=== PATIENT | male | born 1965 | race American Indian/Alaskan Native ===

== ENCOUNTER 2020-12-09 21:07 | Inpatient (IN) | payer SELFPAY ==
[2020-12-09] MEDS ORDERED: SODIUM CHLORIDE 0.9% 1000 ML 1,000 ML IV ONE (21:30)
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
[2020-12-09 21:52] LABS: Basophils # (Auto) 0.1 K/mm3 (0.0-0.1); Basophils % (Auto) 1.2 % (0.0-1.8); Eosinophils # (Auto) 0.1 K/mm3 (0.0-0.4); Eosinophils % (Auto) 2.9 % (0.0-4.3); Hematocrit 40.6 % (35.5-45.6); Hemoglobin 13.7 gm/dl (11.8-15.2); Lymphocytes # (Auto) 1.8 K/mm3 (1.2-5.4); Lymphocytes % (Auto) 36.9 % (13.4-35.0); Mean Corpuscular HGB Conc 34 % (32-34); Mean Corpuscular Volume 81 fl (84-94); Monocytes # (Auto) 0.4 K/mm3 (0.0-0.8); Monocytes % (Auto) 7.5 % (0.0-7.3); Platelet Count 237 K/mm3 (140-440); Red Blood Count 4.99 M/mm3 (3.65-5.03); Red Cell Distribution Width 14.1 % (13.2-15.2)
[2020-12-09 22:15] LABS: Alanine Aminotransferase 12 units/L (7-56); Albumin 4.2 g/dL (3.9-5); BUN/Creatinine Ratio 14; Blood Urea Nitrogen 15 mg/dL (9-20); Calcium 9.2 mg/dL (8.4-10.2); Hemolysis Index 16
--- NOTE | 2020-12-09 22:25 | XRay Report ---
CHEST 1 VIEW 12/09/2020 10:03 PM INDICATION / CLINICAL INFORMATION: Altered Mental Status. COMPARISON: One view of the chest dated 01/26/2014. FINDINGS: SUPPORT DEVICES: None. HEART / MEDIASTINUM: No significant abnormality. LUNGS / PLEURA: Clear lungs. No significant pleural effusion. No pneumothorax. ADDITIONAL FINDINGS: No significant additional findings. IMPRESSION: 1. No acute abnormality of the chest. Signer Name: Jeff Ortiz MD Signed: 12/09/2020 10:20 PM Workstation Name: [id number]
--- NOTE | 2020-12-09 22:55 | Cat Scan Report ---
CT head/brain wo con INDICATION: Altered Mental Status. TECHNIQUE: All CT scans at this location are performed using the following dose modulation technique: Automated exposure control. CONTRAST: None. COMPARISON: None available. FINDINGS: The ventricular system is appropriate in size and configuration without midline shift. Nega tive for mass, stroke or hemorrhage. Physiologic calcification is seen at the basal ganglia. Image bones and paranasal sinuses are unremarkable. IMPRESSION: Negative CT brain without contrast. Signer Name: Shad Saunders MD Signed: 12/09/2020 10:50 PM Workstation Name: [id number]
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
[2020-12-09] MEDS ORDERED: ASPIRIN 81 MG TAB CHEW PO ONE (23:01)
[2020-12-09] MEDS ORDERED: IBUPROFEN 800 MG TAB PO ONE (23:01)
[2020-12-10] MEDS ORDERED: MAGNESIUM HYDROXIDE (MOM) ORAL LIQD UDC PO PRN ×2 (00:45)
[2020-12-10] MEDS ORDERED: ONDANSETRON 4 MG/2 ML INJ IV PRN ×2 (00:45)
[2020-12-10] MEDS ORDERED: PROMETHAZINE 25 MG RECT SUPP PR PRN (00:45)
[2020-12-10] MEDS ORDERED: METOCLOPRAMIDE 10 MG TAB PO PRN (00:45)
[2020-12-10] MEDS ORDERED: MORPHINE 2 MG/1 ML INJ IV PRN (00:45)
[2020-12-10] MEDS ORDERED: DEXTROSE 50% IN WATER (25GM) 50 ML SYRINGE IV PRN (00:45)
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
[2020-12-10 01:39] LABS: Amphetamine Screen,Urine PRESUMPTIVE NEGATIVE; Benzodiazepines Screen,Urine PRESUMPTIVE NEGATIVE; Cannabinoid Screen,Urine PRESUMPTIVE NEGATIVE; Cocaine Screen,Urine PRESUMPTIVE NEGATIVE; Methadone Screen,Urine PRESUMPTIVE NEGATIVE; Opiate Screen,Urine PRESUMPTIVE NEGATIVE
[2020-12-10 01:50] LABS: Bilirubin,Urine NEG (Negative); Blood,Urine NEG (Negative); Color,Urine Colorless (Yellow); Protein,Urine <15 mg/dL mg/dL (Negative); RBC,Urine < 1.0 /HPF (0.0-6.0); Urobilinogen,Urine < 2.0 mg/dL (<2.0); WBC,Urine < 1.0 /HPF (0.0-6.0)
[2020-12-10] MEDS: INSULIN LISPRO 100 UNIT/ML SUB-Q SCH ×4 (08:02→21:35)
[2020-12-10] MEDS: ASPIRIN EC 325 MG TAB PO SCH (09:01)
[2020-12-10] MEDS: ACETAMINOPHEN 325 MG TAB PO PRN ×2 (09:01→21:34)
[2020-12-10] MEDS ORDERED: oxyCODONE 5 MG TAB PO PRN (10:00)
--- NOTE | 2020-12-10 10:42 | Vascular Lab Report ---
BILATERAL CAROTID DUPLEX DOPPLER ULTRASOUND HISTORY: stroke COMPARISON: None. TECHNIQUE: Bryant scale, color and spectral Doppler imaging was performed of the extracranial neck carolina alonso. All stenosis measurements were obtained in comparison with the distal internal carotid artery per the SRU consensus criteria. FINDINGS: RIGHT NECK ARTERIES: CCA: No significant abnormality. ICA: Minimal atherosclerotic plaque in the proximal ICA. ECA: No significant abnormality. Vertebral Artery: No significant abnormality. Antegrade flow. LEFT NECK ARTERIES: CCA: No significant abnormality. ICA: Minimal atherosclerotic plaque in the proximal ICA. ECA: No significant abnormality. Vertebral Artery: No significant abnormality. Antegrade flow. CCA PSV: Right: 100.9 Left: 91.9 cm/sec ICA PSV: Right: 82.9 Left: 61.5 cm/sec ICA/CCA: Right: 0.82 Left: 0.67 ADDITIONAL FINDINGS: None. IMPRESSION: 1. Minimal bilateral atherosclerotic plaque resulting in less than 50% stenosis by NASCET criteria. 2. Normal antegrade flow in both vertebral arteries. SRU CONSENSUS CRITERIA FOR CLASSIFICATION OF INTERNAL CAROTID ARTERY STENOSIS: note: always attempt to characterize location and type of plaque Normal: Primary Parameters: * ICA PSV: Less than 125 cm/s * Plaque estimate: 0% Additional Parameters: * ICA EDV: Less than 40 cm/s * ICA/CCA ratio: Less than 2 Less than 50% stenosis: Primary Parameters: * ICA PSV: Less than 125 cm/s * Plaque estimate: Less than 50% Additional Parameters: * ICA EDV: Less than 40 cm/s * ICA/CCA ratio: Less than 2 50-69% Stenosis: Primary Parameters: * ICA PSV: 125-230 cm/s * Plaque estimate: Greater than 50% Additional Parameters: * ICA EDV: 40-100 cm/s * ICA/CCA ratio: 2-4 * Flow turbulence Greater than 70% stenosis: Primary Parameters: * ICA PSV: Greater than 230 cm/s * Plaque estimate: Greater than 50% Additional Parameters: * ICA EDV: Greater than 100 cm/s * ICA/CCA ratio: Greater than 4 * Dramatic post-stenotic flow turbulence Subtotal occlusion: Primary Parameters: * ICA PSV: Variable * Plaque estimate: Greater than 50% with narrow lumen Additional Parameters: * ICA EDV: Greater than 0 cm/s * ICA/CCA ratio: Variable * String Sign Total occlusion: Primary Parameters: * ICA PSV: 0 cm/s * Plaque estimate: Greater than 50% Additional Parameters: * ICA EDV: 0 cm/s * ICA/CCA ratio: Less than 1 * Compensatory flow in ECA or contralateral CCA/ICA * String Sign in [id number] ICA with color and spectral Doppler Signer Name: Jana Blake MD Signed: 12/10/2020 10:37 AM Workstation Name: [id number]
--- NOTE | 2020-12-10 10:57 | Magnetic Resonance Report ---
MRI BRAIN WITHOUT CONTRAST INDICATION / CLINICAL INFORMATION: Stroke, altered mental status. TECHNIQUE: Multisequence, multiplanar images were obtained. COMPARISON: CT head performed 12/09/2020 FINDINGS: CEREBRAL and CEREBELLAR HEMISPHERES: No evidence of mass or mass effect. No midline shift. No acute hemorrhage. A 7 mm focus of diffusion restriction is identified in the left ganglial capsular regio n consistent with acute to subacute infarct. No extra-axial fluid collection. Mild chronic microvas cular ischemic changes are noted in the periventricular white matter bilaterally. VENTRICLES: Normal in size and configuration for age. VISUALIZED ORBITS: No significant abnormality. VISUALIZED PARANASAL SINUSES: No significant abnormality. ADDITIONAL FINDINGS: None. IMPRESSION: 7 mm subacute ischemic infarct in the left basal ganglia region. Mild chronic microvascular ischemic changes in the white matter. Signer Name: Castro Campbell Jr, MD Signed: 12/10/2020 10:53 AM Workstation Name: [id number]
[2020-12-10] MEDS: INSULIN NPH/REGULAR 70/30 INJ SUB-Q SCH ×2 (12:31→16:49)
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
--- NOTE | 2020-12-10 16:19 | Progress Note ---
Assessment and Plan (1) Acute encephalopathy with CVA Current Visit: Yes Status: Acute Plan to address problem: Etiology unclear. However patient is will be worked up for possible TIA/CVA. Will monitor mental status. Patient will be scheduled for carotid Doppler, MRI of the brain. We will request evaluation by neurology. (2) Diabetes Current Visit: No Status: Chronic Plan to address problem: We will monitor Accu-Cheks closely. Patient placed on sliding scale insulin. (3) HTN (hypertension) Current Visit: No Status: Chronic Plan to address problem: We will continue routine home medications and monitor vital signs closely. (4) DVT prophylaxis Current Visit: Yes Status: Acute Plan to address problem: Patient placed on subcutaneous Lovenox. (5) Full code status Current Visit: Yes Status: Acute Plan to address problem: Patient is full code. 12/10: MRI suggestive of CVA. patient is confused, neuro ordered for CTA head/neck. cont to monitor clinically Subjective Date of service: 12/10/20 Objective - Constitutional Vitals: Vital Signs - 12hr 12/10/20 12/10/20 12/10/20 04:33 08:03 08:05 Temperature 97.9 F 97.9 F Pulse Rate 70 72 Pulse Rate [ 69 Left Radial] Pulse Rate [ 69 Right Radial] Respiratory 18 16 Rate Blood Pressure 147/80 141/74 Blood Pressure [Left] O2 Sat by Pulse 94 98 97 Oximetry 12/10/20 12/10/20 12/10/20 08:10 09:01 12:21 Temperature 96.7 F L Pulse Rate 88 66 Pulse Rate [ Left Radial] Pulse Rate [ Right Radial] Respiratory 17 17 Rate Blood Pressure Blood Pressure 140/78 [Left] O2 Sat by Pulse 98 Oximetry - Labs CBC & Chem 7: 12/09/20 21:37 12/09/20 21:37 Labs: Abnormal lab results 12/09/20 12/09/20 12/09/20 Range/Units 21:37 21:37 21:37 MCV 81 L (84-94) fl Lymph % (Auto) 36.9 H (13.4-35.0) % [place] % (Auto) 7.5 H (0.0-7.3) % Sodium 133 L (137-145) mmol/L Chloride 97.0 L (98-107) mmol/L Glucose 272 H (75-100) mg/dL POC Glucose (70-105) mg/dL Ur Specific [place] (1.003-1.030) Salicylates < 0.3 L (2.8-20.0) mg/dL Acetaminophen (10.0-30.0) ug/mL 12/09/20 12/09/20 12/09/20 Range/Units 21:37 21:42 Unknown MCV (84-94) fl Lymph % (Auto) (13.4-35.0) % [place] % (Auto) (0.0-7.3) % Sodium (137-145) mmol/L Chloride (98-107) mmol/L Glucose (75-100) mg/dL POC Glucose 251 H (70-105) mg/dL Ur Specific [place] 1.000 L (1.003-1.030) Salicylates (2.8-20.0) mg/dL Acetaminophen 5.0 L (10.0-30.0) ug/mL 12/10/20 12/10/20 Range/Units 07:59 12:27 MCV (84-94) fl Lymph % (Auto) (13.4-35.0) % [place] % (Auto) (0.0-7.3) % Sodium (137-145) mmol/L Chloride (98-107) mmol/L Glucose (75-100) mg/dL POC Glucose 176 H 205 H (70-105) mg/dL Ur Specific [place] (1.003-1.030) Salicylates (2.8-20.0) mg/dL Acetaminophen (10.0-30.0) ug/mL HEART Score - HEART Score Troponin: Troponin T < 0.010 ng/mL (0.00-0.029) 12/09/20 21:37
[2020-12-10] MEDS: SODIUM CHLORIDE 0.9% 1000 ML 1,000 ML IV SCH (16:49)
[2020-12-10] MEDS: ENOXAPARIN 40 MG/0.4 ML INJ SUB-Q SCH (21:35)
[2020-12-11 05:52] LABS: Hematocrit 37.3 % (35.5-45.6); Hemoglobin 12.4 gm/dl (11.8-15.2); Mean Corpuscular HGB Conc 33 % (32-34); Mean Corpuscular Volume 82 fl (84-94); Platelet Count 195 K/mm3 (140-440); Red Blood Count 4.55 M/mm3 (3.65-5.03); Red Cell Distribution Width 14.4 % (13.2-15.2)
[2020-12-11 05:53] LABS: INR 1.01 (0.87-1.13)
[2020-12-11 06:08] LABS: BUN/Creatinine Ratio 16; Blood Urea Nitrogen 14 mg/dL (9-20); Calcium 7.9 mg/dL (8.4-10.2); Chol/HDL Ratio 2.84 %; HDL Cholesterol 53 mg/dL (40-59); Hemolysis Index 4; LDL Cholesterol,Direct 98 mg/dL (50-130)
[2020-12-11 07:02] LABS: Total Cells Counted 100
[2020-12-11 07:03] LABS: Platelet Estimate Consistent w Auto; RBC Morphology Normal
[2020-12-11] MEDS: INSULIN LISPRO 100 UNIT/ML SUB-Q SCH ×4 (08:24→22:39)
[2020-12-11] MEDS: INSULIN NPH/REGULAR 70/30 INJ SUB-Q SCH (08:25)
[2020-12-11] MEDS: ASPIRIN EC 325 MG TAB PO SCH (09:43)
[2020-12-11] MEDS ORDERED: CLOPIDOGREL 75 MG TAB PO SCH (10:00)
[2020-12-11] MEDS: SODIUM CHLORIDE 0.9% 1000 ML 1,000 ML IV SCH (10:16)
--- NOTE | 2020-12-11 12:07 | Discharge Summary ---
Providers - Providers Date of Admission: 12/10/20 16:28 Date of discharge: 12/11/20 Attending physician: DAYA ANDRADE 12/10/20 Consult to Physician [CONS] Routine Comment: Consulting Provider: AMRITA DEWEY Physician Instructions: Reason For Exam: Altered mental Status, R/O TIA 12/10/20 00:47 Consult to Case Management [CONS] Routine Services Needed at Discharge: Home Health Services Notified:: case management Consult to Dietitian/Nutrition [CONS] Routine Physician Instructions: Reason For Exam: Reason for Consult: Diet education Consult to Dietitian/Nutrition [CONS] Routine Physician Instructions: Reason For Exam: Reason for Consult: Nutrition Recommendations Reason for Consult: Diet education Occupational Therapy Evaluate and Treat [CONS] Routine Comment: Reason For Exam: Neuro deficits Physical Therapy Evaluation and Treat [CONS] Routine Comment: Reason For Exam: Neuro deficits Primary care physician: CARPENTER REPAIR Hospitalization Condition: Stable Disposition: DC-07 LEFT AGAINST MED ADVICE Time spent for discharge: 34 minutes Exam - Constitutional Vitals: Temp Pulse Resp BP Pulse Ox 97.4 F L 78 17 165/88 98 12/11/20 08:54 12/11/20 11:45 12/11/20 11:45 12/11/20 08:54 12/11/20 11:45 Plan Activity: advance as tolerated Weight Bearing Status: Weight Bear as Tolerated Diet: low fat, low salt Special Instructions: record daily BP diary, record blood sugar diary Additional Instructions: continue Plavix for total 3 weeks and aspirin daily Follow up with: PRIMARY MD GUILLERMO [Primary Care Provider] - 3-5 Days MISHA ALTMAN MD [Staff Physician] - 7 Days Prescriptions: AtorvaSTATin [Lipitor] 40 mg PO QHS #30 tablet Aspirin EC [Ecotrin] 325 mg PO QDAY #30 tablet Insulin NPH/Regular [NovoLIN 70/30] 15 unit SUB-Q BIDDIAB 30 Days Clopidogrel [Plavix] 75 mg PO QDAY #20 tablet lisinopriL [Zestril TAB] 10 mg PO QDAY #30 tablet Other Discharge Orders: Glucometer (Amb) Location: None Selected Glucometer supplies[Amb] Location: None Selected
--- NOTE | 2020-12-11 15:49 | Magnetic Resonance Report ---
MRI BRAIN 12/11/2020 INDICATION / CLINICAL INFORMATION: AMS. Subacute infarct left basal ganglia. Follow-up. TECHNIQUE: Multiplanar, multisequence MR images of the brain were obtained. COMPARISON: MRI brain 12/10/2020 FINDINGS: BRAIN / INTRACRANIAL CONTENTS: Postcontrast T1-weighted images of the brain were obtained. Images are evaluated in the axial, coronal, and sagittal planes. Correlation is made to the noncontrast MRI bra in from 12/10/2020. There is no evidence of abnormal contrast enhancement. Overall brain configuration has not changed. T 1 hyperintensity is present in the left basal ganglia, at the site of the subacute lacunar infarct se en on the earlier noncontrast exam. There is no evidence of superimposed hemorrhage or mass. There are no abnormal extra-axial fluid rebeca ections. IMPRESSION: No abnormal contrast-enhancement. Signer Name: Tigre Witt MD Signed: 12/11/2020 3:45 PM Workstation Name: [id number]
[2020-12-11 15:50] VITALS: BP 157/81
[2020-12-11] MEDS ORDERED: amLODIPine 10 MG TAB PO SCH (16:00)
[2020-12-11] MEDS ORDERED: LISINOPRIL 10 MG TAB PO SCH (16:00)
--- NOTE | 2020-12-11 16:02 | Cat Scan Report ---
CTA NECK WITH CONTRAST 12/11/2020 INDICATION / CLINICAL INFORMATION: CVA. Omnipaque 350 100 mL. COMPARISON: None. TECHNIQUE: Routine CTA of the neck is performed. 3-D/MIP reformats were postprocessed. Percentage st enosis is determined by direct quantitative measurements of diseased internal carotid artery diameter compared with normal distal internal carotid artery reference segments or by criteria similar to [place] CET where applicable. All CT scans at this location are performed using CT dose reduction for ALARA b y means of automated exposure control. CONTRAST: 100 ml of Isovue 370 FINDINGS: Carotid bifurcations: There is no evidence of carotid bifurcation stenosis. Carotid arteries: No significant abnormality. Cervical vertebral arteries: No significant abnormality. Aortic arch: No significant abnormality. None. IMPRESSION: No significant abnormality. Signer Name: Tigre Witt MD Signed: 12/11/2020 3:57 PM Workstation Name: [id number]
--- NOTE | 2020-12-11 16:04 | Cat Scan Report ---
CTA HEAD WITH CONTRAST 12/11/2020 HISTORY: CVA COMPARISON: None. TECHNIQUE: All CT scans at this location are performed using CT dose reduction for ALARA by means of automated exposure control.. 3-D/MIP reformats postprocessed. Percentage stenosis is determined by d irect quantitative measurements of diseased internal carotid artery diameter compared with normal dis christina internal carotid artery reference segments or by criteria similar to NASCET where applicable. CONTRAST: 100 ml of Omnipaque 350 FINDINGS: CTA HEAD: Intracranial vertebral arteries: No significant abnormality. Basilar artery: No significant abnormality. Posterior cerebral arteries: No significant abnormality. Intracranial internal carotid arteries: No significant abnormality. Anterior cerebral arteries: No significant abnormality. Middle cerebral arteries: No significant abnormality. Dural venous sinuses:Not optimally opacified. No significant abnormality. Additional findings: None. IMPRESSION: 1. No significant abnormality. Signer Name: Tigre Witt MD Signed: 12/11/2020 4:00 PM Workstation Name: [id number]
[2020-12-11] MEDS ORDERED: INSULIN NPH/REGULAR 70/30 INJ SUB-Q SCH (17:00)
[2020-12-11] MEDS ORDERED: HALOPERIDOL LACTATE 5 MG/1 ML INJ IM ONE (22:18)
[2020-12-11] MEDS: ACETAMINOPHEN 325 MG TAB PO PRN (22:38)
[2020-12-11] MEDS: ENOXAPARIN 40 MG/0.4 ML INJ SUB-Q SCH (22:39)
== END 2020-12-12 01:37 | disposition home or self-care (01) | DRG 64 ==
LOC: ED 21:07 → 4A 23:00 → OBSVTOIN 12-10 16:28
PROVIDERS: ADMIT Internal Medicine Geriatric Medicine; ATTEND Internal Medicine
DX: I63.9 Cerebral infarction, unspecified (principal); G93.41 Metabolic encephalopathy; G45.4 Transient global amnesia; E11.65 Type 2 diabetes mellitus with hyperglycemia; I10 Essential (primary) hypertension; Z79.82 Long term (current) use of aspirin; Z82.49 Family history of ischemic heart disease and other diseases of the circulatory system; Z83.3 Family history of diabetes mellitus; Z79.4 Long term (current) use of insulin; E78.5 Hyperlipidemia, unspecified; Z88.5 Allergy status to narcotic agent; R29.713 NIHSS score 13; F07.81 Postconcussional syndrome
CPT/HCPCS: 36415; 70450; 70496; 70498; 70551; 70552; 71045; 72125; 80048; 80053; 80061; 80307; 80320; 81001; 82140; 82607; 82747; 82962; 84425; 84443; 84484; 85007; 85025; 85610; 93005; 93306; 93880; 95816; 96365; G0378; A9270-GY; A9575; G0480; J1650; J1815; J7030; Q9967